=== PATIENT | male | born 1985 | race Caucasian/White ===

== ENCOUNTER 2020-11-14 14:49 | Inpatient (IN) ==
[2020-11-14] MEDS ORDERED: Naloxone 0.4 MG/ML INJ IVP PRN (16:59)
[2020-11-14] MEDS ORDERED: Ondansetron ODT 4 MG TAB.RAPDIS SL PRN (16:59)
[2020-11-14] MEDS ORDERED: Vancomycin (wt based) 1,000 MG VIAL IVPB SCH (17:00)
[2020-11-14 17:41] LABS: INR 1.3; Prothrombin Time 14.9 Seconds (9.4-12.1)
[2020-11-14 17:44] LABS: Activated Partial Thrombo Time 26.9 Seconds (26.0-36.0)
[2020-11-15] MEDS: Piperacillin/Tazobactam 3.375 GM in 0.9 % Sodium Chloride Mini Bag 100 ML IVPB SCH ×4 (00:23→23:47)
[2020-11-15] MEDS: Vancomycin 1,500 MG/265 ML IV.SOLN IVPB SCH ×2 (01:38→13:07)
[2020-11-15] MEDS: *HR* Heparin 5,000 UNIT/ML VIAL SQ SCH ×2 (05:02→17:46)
[2020-11-15 09:42] LABS: Hepatitis B Surface Antigen Nonreactive (Nonreactive)
[2020-11-15 10:11] LABS: Hepatitis B Core IgM Nonreactive (Nonreactive)
[2020-11-15 10:12] LABS: Hepatitis A Antibody IgM Nonreactive (Nonreactive)
[2020-11-15 11:27] LABS: Hepatitis C Virus Antibody Reactive (Nonreactive)
[2020-11-15] MEDS ORDERED: *HR* Promethazine 25 MG/ML VIAL IM PRN (13:12)
[2020-11-15] MEDS ORDERED: *HR* LORazepam 2 MG/ML VIAL IVP PRN ×3 (13:12)
[2020-11-15] MEDS ORDERED: Multivit/Ca/Min/Fe/FA 1 TAB TABLET PO SCH (15:00)
[2020-11-15] MEDS ORDERED: Thiamine (B-1) 100 MG in 0.9 % Sodium Chloride 50 ML IVPB SCH (18:00)
[2020-11-15] MEDS ORDERED: Folic Acid 1 MG in 0.9 % Sodium Chloride 50 ML IVPB SCH (18:00)
[2020-11-15] MEDS ORDERED: Thiamine (B-1) 100 MG, Folic Acid 1 MG, MVI, adult with vitamin K 10 ML in 0.9 % Sodi... IVPB SCH (18:00)
[2020-11-15 19:34] LABS: Basophils % 0.3 %; Eosinophils # 0.4 K/mcL (0.0-0.6); Eosinophils % 3.5 %; Hemoglobin 12.6 g/dL (12.9-16.9); Immature Granulocytes % 0.3 % (0-4); Lymphocytes # 1.5 K/mcL (0.6-4.6); Lymphocytes % 13.8 %; Mean Corpuscular HGB Conc 32.3 g/dL (31.6-35.5); Mean Corpuscular Hemoglobin 29.3 pg (28.0-33.3); Mean Corpuscular Volume 90.7 fL (83.0-100.0); Mean Platelet Volume 9.2 fL (9.4-12.4); Monocytes % 9.5 %; Neutrophils # 7.8 K/mcL (1.6-8.9); Platelet Count 301 K/mcL (140-400); Red Cell Distribution Width 12.9 % (11.5-14.5); Segmented Neutrophils % 72.6 %; White Blood Count 10.7 K/mcL (4.3-11.1)
[2020-11-15 20:14] LABS: BUN/Creatinine Ratio 13 (6-26); Blood Urea Nitrogen 9 mg/dL (6-20); Calcium 8.4 mg/dL (8.6-10.3); Carbon Dioxide 24 mEq/L (23-29); Chloride 103 mEq/L (98-107); Glucose 133 mg/dL (70-105); Osmolality,Calculated 277 (280-300); Potassium 3.5 mEq/L (3.5-5.1); Sodium 133 mEq/L (136-145); eGFR For African Americans > 60 (> 60); eGFR For Non-African Americans > 60 (> 60)
[2020-11-15 22:23] VITALS: BP 108/66
[2020-11-16] MEDS: Vancomycin 1,500 MG/265 ML IV.SOLN IVPB SCH (01:36)
[2020-11-16] MEDS ORDERED: Acetaminophen IV 1,000 MG/100 ML BAG IVPB ONE (02:22)
[2020-11-16] MEDS ORDERED: Thiamine (B-1) 100 MG in 0.9 % Sodium Chloride 50 ML IVPB SCH (12:00)
[2020-11-16] MEDS ORDERED: Folic Acid 1 MG in 0.9 % Sodium Chloride 50 ML IVPB SCH (13:00)
== END 2020-11-16 04:10 | disposition left against medical advice (07) | DRG 549 ==
LOC: 3ANU → SUATTDRO 16:11
PROVIDERS: ADMIT Family Medicine; ATTEND Internal Medicine